=== PATIENT | female | born 1975 | race Caucasian/White ===

== ENCOUNTER 2017-02-15 11:47 | Emergency (ER) | payer SELFPAY ==
[2017-02-15 11:49] VITALS: BP 179/102; PULSE 88; RESP 18; TEMP 98.2; O2SAT 99
[2017-02-15] MEDS ORDERED: ASPIRIN 81 MG CHEW TAB PO ONE (12:00)
[2017-02-15] MEDS ORDERED: MORPHINE SULFATE 4 MG/ML INJ IV PUSH ONE (12:00)
[2017-02-15] MEDS ORDERED: SODIUM CHLORIDE 0.9% FLUSH 10 ML FLUSH IVF PRN (12:00)
--- NOTE | 2017-02-15 12:00 | PD ---
HPI Chief Complaint: Chest Pain Time Seen by Provider: 11:55 Travel History International Travel<30 days: No Contact w/Intl Traveler<30days: No Traveled to known affect area: No History of Present Illness HPI CHEST WALL PAIN, ANTERIOR, NONRAD, SHARP, 5/10, WORSE WITH MOVEMENT AND PALPATION. NKDA H/O HTN ONLY PFSH Past Medical History Medical History: Denies Significant Hx Influenza Vaccination: No ?: Not LMP: IUD Past Surgical History Section: Yes Cholecystectomy: Yes Social History Alcohol Use: Yes ("SPORADICALLY") Tobacco Use: No Substance Use: No Allergies-Medications (Allergen,Severity, Reaction): Coded Allergies: No Known Allergies (Unverified , 02/15/17) Reported Meds & Prescriptions Reported Meds & Active Scripts Active Robaxin (Methocarbamol) 500 Mg Tab 1,000 Mg PO TID Ultram (Tramadol HCl) 50 Mg Tab 50 Mg PO Q4H PRN Review of Systems Except as stated in HPI: all other systems reviewed are Neg Cardiovascular: Positive: Chest Pain or Discomfort Physical Exam Narrative GENERAL: SKIN: Warm and dry. HEAD: Atraumatic. Normocephalic. EYES: Pupils equal and round. No scleral icterus. No injection or drainage. ENT: No nasal bleeding or discharge. Mucous membranes pink and moist. NECK: Trachea midline. No JVD. CARDIOVASCULAR: Regular rate and rhythm. RESPIRATORY: No accessory muscle use. Clear to auscultation. Breath sounds equal bilaterally. GASTROINTESTINAL: Abdomen soft, non-tender, nondistended. MUSCULOSKELETAL: Extremities without clubbing, cyanosis, or edema. No obvious deformities. COMPLETELY REPRODUCIBLE CW PAIN ON PALPATION (NO ECHYMOSIS) NEUROLOGICAL: Awake and alert. No obvious cranial nerve deficits. Motor grossly within normal limits. Five out of 5 muscle strength in the arms and legs. Normal speech. PSYCHIATRIC: Appropriate mood and affect; insight and judgment normal. Data Data Last Documented VS Vital Signs Date Time Temp Pulse Resp B/P Pulse Ox O2 Delivery O2 Flow Rate FiO2 02/15/17 13:43 93 02/15/17 13:43 18 145/87 98 Room Air 02/15/17 11:49 98.2 Orders Electrocardiogram (02/15/17 11:55) B-Type Natriuretic Peptide (02/15/17 11:55) Ckmb (Isoenzyme) Profile (02/15/17 11:55) Complete Blood Count With Diff (02/15/17 11:55) Comprehensive Metabolic Panel (02/15/17 11:55) D-Dimer (02/15/17 11:55) Prothrombin Time / Inr (Pt) (02/15/17 11:55) Act Partial Throm Time (Ptt) (02/15/17 11:55) Troponin I (02/15/17 11:55) Lipase (02/15/17 11:55) Chest, Single Ap (02/15/17 11:55) Ecg Monitoring (02/15/17 11:55) Bilateral Bp Monitoring (02/15/17 11:55) Iv Access Insert/Monitor (02/15/17 11:55) Oximetry (02/15/17 11:55) Oxygen Administration (02/15/17 11:55) Aspirin Chew (Aspirin Chew) (02/15/17 12:00) Morphine Inj (Morphine Inj) (02/15/17 12:00) Sodium Chloride 0.9% Flush (Ns Flush) (02/15/17 12:00) CKMB (02/15/17 12:10) CKMB% (02/15/17 12:10) Us Abdomen Gallbladder (02/15/17 ) Labs Laboratory Tests Test 02/15/17 12:10 White Blood Count 6.4 TH/MM3 Red Blood Count 5.03 MIL/MM3 Hemoglobin 14.9 GM/DL Hematocrit 43.7 % Mean Corpuscular Volume 86.9 FL Mean Corpuscular Hemoglobin 29.6 PG Mean Corpuscular Hemoglobin 34.1 % Concent Red Cell Distribution Width 12.3 % Platelet Count 329 TH/MM3 Mean Platelet Volume 7.5 FL Neutrophils (%) (Auto) 64.3 % Lymphocytes (%) (Auto) 25.3 % Monocytes (%) (Auto) 7.7 % Eosinophils (%) (Auto) 2.2 % Basophils (%) (Auto) 0.5 % Neutrophils # (Auto) 4.2 TH/MM3 Lymphocytes # (Auto) 1.6 TH/MM3 Monocytes # (Auto) 0.5 TH/MM3 Eosinophils # (Auto) 0.1 TH/MM3 Basophils # (Auto) 0.0 TH/MM3 CBC Comment DIFF FINAL Differential Comment Prothrombin Time 10.8 SEC Prothromb Time International 1.0 RATIO Ratio Activated Partial 27.6 SEC Thromboplast Time D-Dimer Quantitative (PE/DVT) 0.31 MG/L FEU Sodium Level 141 MEQ/L Potassium Level 3.0 MEQ/L Chloride Level 108 MEQ/L Carbon Dioxide Level 26.2 MEQ/L Anion Gap 7 MEQ/L Blood Urea Nitrogen 10 MG/DL Creatinine 1.00 MG/DL Estimat Glomerular Filtration 61 ML/MIN Rate Random Glucose 109 MG/DL Calcium Level 8.4 MG/DL Total Bilirubin 1.4 MG/DL Aspartate Amino Transf 52 U/L (AST/SGOT) Alanine Aminotransferase 86 U/L (ALT/SGPT) Alkaline Phosphatase 67 U/L Total Creatine Kinase 130 U/L Creatine Kinase MB 1.3 NG/ML Troponin I LESS THAN 0.02 NG/ML B-Type Natriuretic Peptide 4 PG/ML Total Protein 7.0 GM/DL Albumin 3.3 GM/DL Lipase 224 U/L [facility] Medical Decision Making Medical Screen Exam Complete: Yes Emergency Medical Condition: Yes Medical Record Reviewed: Yes Interpretation(s) NSR 83, NL INTERVALS, J POINT ELEVATION, NO STEMI PATTERN Differential Diagnosis STEMI V PE V PNA V PULM EDEMA V CHEST WALL PAIN Narrative Course UPON EVALUATION EKG NEG FOR STEMI, CARDIAC ENZYMES NEG WELL, CXR NEG FOR PNA/ INFILTRATE/EDEMA, ALSO D DIMER NEG, AND RUQ USS IS NEGATIVE FOR ANY LIVER MASS AND CONFIRMS GB REMOVAL WITHOUT ANY E/O CBD DILATION Diagnosis Primary Impression: CHEST WALL PAIN Patient Instructions: Acute Bronchitis (ED), General Instructions Scripts Azithromycin (Zithromax Z-Nasim)250 Mg Isik166 Mg PO DIRECTED #1 DSPK 500 MG (2 tabs) day 1, then 1 tab days 2-5. Prov:Roge Martinez MD 02/15/17 Methocarbamol (Robaxin)500 Mg Tab1,000 Mg PO TID #21 TAB Ref 0 Prov:Roge Martinez MD 02/15/17 Tramadol (Ultram)50 Mg Tab50 Mg PO Q4H PRN (PAIN) #28 TAB Prov:Roge Martinez MD 02/15/17 Disposition: 01 DISCHARGE HOME Condition: Stable Roge Martinez MD Feb 15, 2017 11:59
[2017-02-15 12:15] VITALS: O2SAT 99
[2017-02-15 12:16] LABS: AUTOMATED NEUTROPHIL # 4.2 TH/MM3 (1.8-7.7); BASOPHIL % 0.5 % (0.0-2.0); EOSINOPHIL # 0.1 TH/MM3 (0-0.4); EOSINOPHIL % 2.2 % (0.0-4.0); HEMATOCRIT 43.7 % (35.0-46.0); HEMO FLAGS DIFF FINAL; LYMPH % 25.3 % (9.0-44.0); LYMPHOCYTE # 1.6 TH/MM3 (1.0-4.8); MEAN CELL VOLUME 86.9 FL (80.0-100.0); MEAN CORPUSCULAR HEMOGLOBIN 29.6 PG (27.0-34.0); MEAN CORPUSCULAR HGB CONC 34.1 % (32.0-36.0); MONO % 7.7 % (0.0-8.0); NEUT % 64.3 % (16.0-70.0); PLATELET COUNT 329 TH/MM3 (150-450); RED BLOOD COUNT 5.03 MIL/MM3 (4.00-5.30); RED CELL DISTRIBUTION WIDTH 12.3 % (11.6-17.2); WHITE BLOOD COUNT 6.4 TH/MM3 (4.0-11.0)
[2017-02-15 12:25] LABS: CHLORIDE 108 MEQ/L (98-107); SODIUM (NA) 141 MEQ/L (136-145)
[2017-02-15 12:29] LABS: ANION GAP 7 MEQ/L (5-15); BICARBONATE 26.2 MEQ/L (21.0-32.0)
[2017-02-15 12:30] LABS: BLOOD UREA NITROGEN 10 MG/DL (7-18)
[2017-02-15 12:31] VITALS: BP 143/88; PULSE 88; RESP 18; O2SAT 98
[2017-02-15 12:31] LABS: APTT (PATIENT) 27.6 SEC (24.3-30.1); PROTHROMBIN TIME - PATIENT 10.8 SEC (9.8-11.6)
[2017-02-15 12:32] LABS: ALT (GPT) 86 U/L (10-53); GLOMERULAR FILTRATION RATE 61 ML/MIN (>89)
[2017-02-15 12:33] LABS: AST (GOT) 52 U/L (15-37); TOTAL BILIRUBIN ADULT 1.4 MG/DL (0.2-1.0)
[2017-02-15 12:34] LABS: CREATINE KINASE 130 U/L (26-192)
[2017-02-15 12:36] LABS: ALKALINE PHOSPHATASE 67 U/L (45-117)
[2017-02-15 12:47] LABS: CKMB 1.3 NG/ML (0.5-3.6)
--- NOTE | 2017-02-15 13:25 | RADRPT ---
EXAM DATE/TIME: 02/15/2017 12:26 [facility] COMPARISON: No previous studies available for comparison. INDICATIONS : Patient has had chest pain since Sunday. MEDICAL HISTORY : None. SURGICAL HISTORY : Cholecystectomy. ENCOUNTER: Initial ACUITY: 1 day PAIN SCORE: 4/10 LOCATION: Left chest FINDINGS: Portable AP view of the chest demonstrates a normal-sized cardiac silhouette. No effusion, consolidat ion, or pneumothorax is visualized. The bones and soft tissues demonstrate no acute abnormality. CONCLUSION: No acute cardiopulmonary abnormality is identified. Ryley Farooq MD on February 15, 2017 at 13:23 Board Certified Radiologist. This report was verified electronically.
[2017-02-15 13:43] VITALS: BP 145/87; PULSE 93; RESP 18; O2SAT 98
--- NOTE | 2017-02-15 13:48 | RADRPT ---
EXAM DATE/TIME: 02/15/2017 13:16 [facility] COMPARISON: No previous studies available for comparison. INDICATIONS : Left chest pain. Elevated liver labs. MEDICAL HISTORY : Left chest pain. SURGICAL HISTORY : Cholecystectomy. ENCOUNTER: Initial ACUITY: 2 days PAIN SCORE: 4/10 LOCATION: Right upper quadrant MEASUREMENTS: LIVER: 16.1 cm length COMMON DUCT: 6 mm RIGHT KIDNEY: 12.5 x 5.1 x 5.8 cm FINDINGS: LIVER: Normal echotexture without focal lesion or ductal dilatation. COMMON DUCT: No intraluminal mass or stone visualized. GALLBLADDER: Surgically absent. PANCREAS: The visualized portions are within normal limits. RIGHT KIDNEY: No evidence of hydronephrosis, stone, or mass. CONCLUSION: 1. Postoperative cholecystectomy without ductal dilatation. No focal liver lesions. No free fluid. Rudy Frankel MD on February 15, 2017 at 13:45 Board Certified Radiologist. This report was verified electronically.
[2017-02-15] MEDS ORDERED: ULTR50TA5 PO (13:58)
[2017-02-15] MEDS ORDERED: ROBA500T PO (13:58)
[2017-02-15] MEDS ORDERED: ZITHTAB PO (13:59)
--- NOTE | 2017-02-16 09:33 | EKG ---
Date Performed: 02/15/2017 Time Performed: 11:53:37 PTAGE: 41 years EKG: Sinus rhythm NORMAL ECG NO PREVIOUS TRACING DOCTOR: Jose Pablo Interpretating Date/Time 02/16/2017 09:31:08
== END 2017-02-15 14:12 | disposition home or self-care (01) ==
LOC: PHED 11:47
DX: R07.89 Other chest pain (principal)
CPT/HCPCS: 71010; 76705; 80053; 82550; 82552; 83690; 83880; 84484; 85025; 85379; 85610; 85730; 93005

== ENCOUNTER 2017-05-12 10:22 | Emergency (ER) | payer SELFPAY ==
[~2017-05-12] VITALS: Ht 157.5 cm; Wt 85.7 kg
[~2017-05-12 10:22] MED LIST: ROBA500T PO; ULTR50TA5 PO; ZITHTAB PO
[2017-05-12 10:29] VITALS: BP 139/87; PULSE 89; RESP 16; TEMP 98.4; O2SAT 95
--- NOTE | 2017-05-12 10:54 | PD ---
HPI Chief Complaint: GI Complaint Time Seen by Provider: 10:38 Travel History International Travel<30 days: No Contact w/Intl Traveler<30days: No Traveled to known affect area: No History of Present Illness HPI The patient is a 42-year-old female who presents to the emergency department for generalized body aches, nausea, vomiting, diarrhea, and intermittent abdominal pain that started Th night. The patient states that the nausea, vomiting, and diarrhea have resolved. She was able to tolerate soup last night for dinner without difficulty. She states the body aches have slightly improved, however, she still has generalized fatigue. The patient did not receive an influenza vaccination this year. She denies any dysuria, frequency, or urgency. She complained of a headache yesterday and took ibuprofen with resolution of her headache. She denies any rash associated with her symptoms. The patient does not have a local primary physician, states she moved to local area from [place], [place], in November 2017. The patient's symptoms are mild to moderate, possibly exacerbated by underlying infection, and slightly alleviated with ibuprofen. [facility] Past Medical History Medical History: Denies Significant Hx ?: Not LMP: has IUD no menses Past Surgical History Section: Yes Cholecystectomy: Yes Social History Alcohol Use: Yes ("SPORADICALLY") Tobacco Use: No Substance Use: No Allergies-Medications (Allergen,Severity, Reaction): Coded Allergies: No Known Allergies (Unverified , 05/12/17) Reported Meds & Prescriptions Reported Meds & Active Scripts Active Review of Systems Except as stated in HPI: all other systems reviewed are Neg General / Constitutional: No: Fever HENT: Positive: Headaches, No: Lightheadedness, Sore Throat, Congestion Cardiovascular: No: Chest Pain or Discomfort Respiratory: No: Cough, Shortness of Breath Gastrointestinal: Positive: Nausea, Vomiting, Diarrhea, Abdominal Pain ( intermittent cramping which has resolved) Genitourinary: No: Dysuria Musculoskeletal: Positive: Myalgias, Weakness Physical Exam Narrative GENERAL: Awake, alert, nontoxic-appearing 42-year-old female who appears her stated age and is in no acute respiratory distress. SKIN: Focused skin assessment warm/dry. HEAD: Atraumatic. Normocephalic. EYES: Pupils equal and round. No scleral icterus. No injection or drainage. ENT: No nasal bleeding or discharge. Mucous membranes pink and moist. No visible cobblestoning or exudate. NECK: Trachea midline. No JVD. CARDIOVASCULAR: Regular rate and rhythm. No murmur appreciated. Heart rate in the 80s. RESPIRATORY: No accessory muscle use. Clear to auscultation. Breath sounds equal bilaterally. GASTROINTESTINAL: Abdomen soft, non-tender, nondistended. No rebound tenderness , guarding, or rigidity. Back: No CVA tenderness. MUSCULOSKELETAL: No obvious deformities. No clubbing. No cyanosis. No edema. NEUROLOGICAL: Awake and alert. No obvious cranial nerve deficits. Motor grossly within normal limits. Normal speech. PSYCHIATRIC: Appropriate mood and affect; insight and judgment normal. Data Data Last Documented VS Vital Signs Date Time Temp Pulse Resp B/P (MAP) Pulse Ox O2 Delivery O2 Flow Rate FiO2 05/12/17 10:29 98.4 89 16 139/87 (104) 95 Orders Orders Urinalysis - C+S If Indicated (05/12/17 10:49) Urine Culture (05/12/17 10:52) Labs Laboratory Tests Test 05/12/17 10:52 Urine Collection Type CLEAN CATCH Urine Color YELLOW Urine Turbidity CLOUDY Urine pH 6.0 Urine Specific [place] 1.020 Urine Protein TRACE mg/dL Urine Glucose (UA) NEG mg/dL Urine Ketones 15 mg/dL Urine Occult Blood MOD Urine Nitrite NEG Urine Bilirubin NEG Urine Leukocyte Esterase LARGE Urine RBC 10-14 /hpf Urine WBC 9-14 /hpf Urine Squamous Epithelial Cells 6-8 /hpf Urine Amorphous Sediment FEW Microscopic Urinalysis Comment CULTURE INDICATED MDM Medical Decision Making Medical Screen Exam Complete: Yes Emergency Medical Condition: Yes Medical Record Reviewed: Yes Interpretation(s) Laboratory Tests Test 05/12/17 10:52 Urine Collection Type CLEAN CATCH Urine Color YELLOW Urine Turbidity CLOUDY Urine pH 6.0 Urine Specific [place] 1.020 Urine Protein TRACE mg/dL Urine Glucose (UA) NEG mg/dL Urine Ketones 15 mg/dL Urine Occult Blood MOD Urine Nitrite NEG Urine Bilirubin NEG Urine Leukocyte Esterase LARGE Urine RBC 10-14 /hpf Urine WBC 9-14 /hpf Urine Squamous Epithelial Cells 6-8 /hpf Urine Amorphous Sediment FEW Microscopic Urinalysis Comment CULTURE INDICATED Differential Diagnosis Differential diagnosis includes influenza, viral syndrome, gastroenteritis, pyelonephritis, pneumonia, URI. Narrative Course A UA was sent to lab. I had a discussion with the patient regarding influenza screening/testing as her symptoms are less than 48 hours. We discussed the risk and benefits of Tamiflu, the patient states she would not want to take Tamiflu, therefore, influenza testing was not performed. The patient is tolerating oral intake without difficulty and vitals are normal, therefore, no IV was established. UA does reveal RBCs and WBCs, may be contaminant versus UTI. Therefore, patient will be treated with Bactrim twice a day for 3 days. She is advised to drink plenty fluids to stay hydrated and to alternate Tylenol and Motrin for pain and fever. Diagnosis Primary Impression: Viral syndrome Additional Impression: UTI (urinary tract infection) Qualified Codes: N30.01 - Acute cystitis with hematuria Patient Instructions: General Instructions Additional Instructions: Work excuse for 2 days. Plenty fluids to stay hydrated. Alternate Tylenol and Motrin for pain and fever. Follow-up with a primary physician. Return if symptoms worsen or progress. Med/Other Pt SpecificInfo: Prescription(s) given Scripts Sulfamethoxazole-Trimethoprim (Bactrim DS) 800-160 Mg Tab 1 TAB PO BID for Infection, #6 TAB 0 Refills Prov: Mc Rene MD 05/12/17 Disposition: DISCHARGE HOME Condition: Stable Mc Rene MD May 12, 2017 10:54
[2017-05-12 11:14] LABS: BLOOD, URINE MOD (NEG); GLUCOSE,URINE NEG (NEG); KETONE, URINE 15 mg/dL (NEG); NITRITE,URINE NEG (NEG); URINE LEUKOCYTE ESTERASE LARGE (NEG)
[2017-05-12 11:15] LABS: BILIRUBIN, URINE NEG (NEG); URINE COLOR YELLOW (YELLW/STRAW)
[2017-05-12 11:26] LABS: AMORPHOUS SEDIMENT, URINE FEW
[2017-05-12] MEDS ORDERED: BACT800T5 PO (11:38)
== END 2017-05-12 12:42 | disposition home or self-care (01) ==
LOC: PHED 10:22
DX: B34.9 Viral infection, unspecified (principal)
CPT/HCPCS: 81001; 87086; 99283